=== PATIENT | male | born 1960 | race Hispanic/Latino ===

== ENCOUNTER 2017-12-02 04:26 | Emergency (ER) | payer MEDICARE ==
[2017-12-02] MEDS ORDERED: TYLENOL ONE (05:05)
[2017-12-02] MEDS ORDERED: TYLENOL PO ONE (05:14)
--- NOTE | 2017-12-02 06:09 | XRay Report ---
FINAL REPORT PROCEDURE: XR SHOULDER 2+V RT TECHNIQUE: Right shoulder radiographs including AP views in internal and external rotation and abduction. CPT 30539 HISTORY: fall, pain COMPARISON: No prior studies are available for comparison. FINDINGS: Fracture (s) and/or Dislocation(s): There is irregularity of the humeral head which could be Hill-Sachs deformity. Please correlate with prior history of dislocations. There is currently no glenohumeral joint dislocation.. Joint space(s): Normal . Soft tissues: Normal . Bone mineralization: Normal . Foreign bodies: None . IMPRESSION: There is irregularity of the humeral head which could be Hill-Sachs deformity. Please correlate with prior history of dislocations. There is currently no glenohumeral joint dislocation.. There is no soft tissue abnormality.
--- NOTE | 2017-12-02 06:13 | XRay Report ---
FINAL REPORT PROCEDURE: XR HIP 2-3V RT TECHNIQUE: RIGHT hip radiographs, 2 views each, including AP view of the pelvis. HISTORY: fall, pain COMPARISON: No prior studies are available for comparison. FINDINGS: There is a screw transfixing the right sacroiliac joint. There are old healed fractures of the right sacral ala and the right pubic rami. There is no acute fracture. The hip joints are intact. There is no dislocation. There is mild degenerative arthrosis. Soft tissues are unremarkable. IMPRESSION: There are postsurgical and degenerative changes and old healed fractures. There is no acute bony abnormality.
[2017-12-02 06:28] LABS: Basophils % (Auto) 0.4 % (0.0-1.8); Eosinophils # (Auto) 0.1 K/mm3 (0.0-0.4); Eosinophils % (Auto) 0.8 % (0.0-4.3); Hematocrit 39.1 % (35.5-45.6); Hemoglobin 13.3 gm/dl (11.8-15.2); Lymphocytes % (Auto) 16.9 % (13.4-35.0); Mean Corpuscular HGB Conc 34 % (32-34); Mean Corpuscular Hemoglobin 31 pg (28-32); Mean Corpuscular Volume 90 fl (84-94); Monocytes % (Auto) 8.3 % (0.0-7.3); Platelet Count 127 K/mm3 (140-440); Red Blood Count 4.32 M/mm3 (3.65-5.03)
[2017-12-02 06:34] LABS: Creatine Kinase MB 2.4 ng/mL (0.0-4.0)
[2017-12-02 06:40] LABS: Free T4 (Free Thyroxine) 1.32 ng/dL (0.76-1.46)
--- NOTE | 2017-12-02 06:41 | Cat Scan Report ---
FINAL REPORT PROCEDURE: CT CERVICAL SPINE WO CON TECHNIQUE: Computerized tomography of the cervical spine was performed from the skull base to T1 without contrast material. HISTORY: fall, pain COMPARISON: No prior studies are available for comparison. FINDINGS: The skull base and the foramen magnum are intact. The cervical vertebrae are intact. There is no fracture or malalignment. Facet joints are intact. The prevertebral soft tissues are normal in thickness. IMPRESSION: No significant abnormality.
--- NOTE | 2017-12-02 06:45 | Cat Scan Report ---
FINAL REPORT PROCEDURE: CT HEAD/BRAIN WO CON TECHNIQUE: Computerized tomography of the head was performed without contrast material. HISTORY: fall, pain COMPARISON: No prior studies are available for comparison. FINDINGS: Skull and scalp: There is an old right frontal craniotomy. There is no acute skull fracture.. Paranasal sinuses: Normal. Ventricles and subarachnoid spaces: There is no hydrocephalus or asymmetry. There is age-appropriate atrophy.. Cerebrum: No evidence of hemorrhage, acute infarction or mass. There encephalomalacia in the right frontal and temporal lobes. There is bilateral frontal atrophy and chronic ischemic gliosis. There is a linear defect in the left internal capsule suggesting old infarct or hemorrhage. Cerebellum and brainstem: No evidence of hemorrhage, acute infarction or mass. Vasculature: Normal. Comments: None. IMPRESSION: There are chronic changes as described. There is no acute traumatic injury.
[2017-12-02 06:58] LABS: BUN/Creatinine Ratio 8; Blood Urea Nitrogen 7 mg/dL (9-20); Calcium 8.7 mg/dL (8.4-10.2); Hemolysis Index 14
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
[2017-12-02] MEDS ORDERED: SUBLIMAZE IM ONE (07:47)
[2017-12-02] MEDS ORDERED: ZOFRAN IM ONE (07:47)
[2017-12-02] MEDS ORDERED: ULTRAM PO ONE (07:48)
[2017-12-02 07:49] LABS: Bilirubin,Urine NEG (Negative); Blood,Urine NEG (Negative); Color,Urine Straw (Yellow); Mucus,Urine FEW /HPF; Protein,Urine <15 mg/dL mg/dL (Negative); Urobilinogen,Urine < 2.0 mg/dL (<2.0)
--- NOTE | 2017-12-02 07:51 | XRay Report ---
FINAL REPORT EXAM: XR SPINE SACRUM/COCCYX 2+V HISTORY: pain after fall TECHNIQUE: Three views of the sacrum and coccyx were obtained. FINDINGS: There is osteoporosis. There well-healed fractures involving the superior and inferior pubic rami bilaterally. There is a threaded screw across the right SI joint. There is no evidence of acute fracture. The soft tissues are unremarkable. IMPRESSION: Osteoporosis with remote well-healed fractures of the pubic bone. No acute fracture identified.
[2017-12-02 09:43] VITALS: BP 142/66
== END 2017-12-02 11:30 | disposition other institution (70) ==
LOC: ED 04:26
DX: S09.90XA Unspecified injury of head, initial encounter (principal); M54.5 Low back pain; R55 Syncope and collapse; I10 Essential (primary) hypertension
CPT/HCPCS: 36415; 70450; 72125; 72220; 80048; 81001; 82550; 82553; 84439; 84443; 84484; 85025; 93005; 93010